=== PATIENT | female | born 1960 | race Caucasian/White ===

== ENCOUNTER → 2022-04-13 13:05 | Outpatient (CLI) | payer OTHER, SELFPAY ==
--- NOTE | ~2022-04-13 | CT_ITS ---
EXAMINATION: CT abdomen pelvis wo con DATE: 04/13/2022 13:23 INDICATION: Left hydronephrosis. Frequent bladder infections. TECHNIQUE: Computed tomography (CT) of the abdomen and pelvis was performed without intravenous contr ast. The dose-length product was 912.91 mGy-cm. Automated exposure control and iterative reconstructi on technique were employed. COMPARISON: None. FINDINGS: Lung bases are unremarkable. Heart size is normal. No significant pleural or pericardial ef fusion. There are moderately distended fluid-filled small bowel loops. There is no anastomotic site i n the left upper abdomen. There is gas throughout the colon. Colonic diverticulosis without evidence for acute diverticulitis. No free air or free fluid. There are changes of gastric bypass surgery. The liver, spleen, pancreas, adrenal glands and kidneys are unremarkable. No renal stones, masses or hydronephrosis. There is focal fatty infiltration of the liver near the falciform ligament. There is osteoarthritis of the hips. Focal sclerotic lesion left femoral head, likely benign bone island. There is mild spondylosis at L5-S1. No significant vascular abnormality. No lymphadenopathy. IMPRESSION: 1. Moderately distended fluid-filled small bowel loops without definitive transition point. Different ial diagnosis includes enteritis, ileus and partial small bowel obstruction. 2: Colonic diverticulosis without evidence for diverticulitis. Reviewed, dictated and finalized at location D. [facility] [employer] IMPRESSION: 1. Moderately distended fluid-filled small bowel loops without definitive trans ition point. Differential diagnosis includes enteritis, ileus and partial small bowel obstruction. 2: Colonic diverticulosis without evidence for diverticulitis.
== END ==
PROVIDERS: PCP Physician Assistant; Visit Provider Nurse Practitioner Family
DX: N13.30 Unspecified hydronephrosis (principal); K57.30 Diverticulosis of large intestine without perforation or abscess without bleeding
CPT/HCPCS: 74176